=== PATIENT | male | born 1990 | race American Indian/Alaskan Native ===

== ENCOUNTER 2021-06-17 18:13 | Emergency (ER) | payer SELFPAY ==
--- NOTE | 2021-06-17 19:22 | XRay Report ---
CHEST PA AND LATERAL VIEWS INDICATION: Medical Clearance Psych. COMPARISON: None. FINDINGS: Support devices: None. Heart: Within normal limits. Lungs/Pleura: There are mild bibasilar opacities. Upper lungs are clear. No pleural abnormality. IMPRESSION: 1. Nonspecific mild bibasilar opacities. These could be atelectatic but follow-up is recommended. 2. There is gaseous distention of the colon under the left hemidiaphragm. Signer Name: Kodak Flanagan MD Signed: 06/17/2021 7:17 PM Workstation Name: [id number]
--- NOTE | 2021-06-17 19:31 | Emergency Department Report ---
HPI - General Chief Complaint: Dizziness Time Seen by Provider: 06/17/21 18:56 - HPI HPI: 31-year-old -[place] male presents to the emergency department with a complaint of having some dizziness/lightheadedness that started just prior to presentation. He denies any fever, vision change, slurred speech, numbness or paresthesias, headache, chest pain, shortness of breath. Patient denies any past medical history. He has not taken anything for his symptoms prior to presentation. His dizziness/lightheadedness worsens when he stands up. Patient also complains of "abnormalities in my body, my skin, and in my clothes." Patient says that he is seeing particular shapes in these areas. When asked how long this has been going on he says "a while." He denies any history of any psychiatric illness. Patient denies any hallucinations, suicidal or homicidal ideations. ED Past Medical Hx - Past Medical History Previous Medical History?: No - Surgical History Past Surgical History?: No - Social History Smoking Status: Never Smoker Substance Use Type: None - Medications Home Medications: Home Medications Medication Instructions Recorded Confirmed Last Taken Type Ibuprofen [Motrin] 800 mg PO Q8H #30 tablet 06/26/14 Unknown Rx methOCARBAMOL [Robaxin] 500 mg PO TID #30 tablet 06/26/14 Unknown Rx Acetaminophen/Codeine [Tylenol #3] 1 tab PO Q6H PRN #15 tab 05/23/15 Unknown Rx Cyclobenzaprine [Flexeril 10 MG 10 mg PO TID PRN #15 tablet 05/23/15 Unknown Rx TAB] Clindamycin [Clindamycin CAP] 300 mg PO Q6H #42 capsule 07/03/16 Unknown Rx Ibuprofen [Motrin 800 MG tab] 800 mg PO Q8HR PRN #30 tablet 07/03/16 Unknown Rx traMADoL [Ultram 50 MG tab] 50 mg PO Q6HR PRN #20 tablet 07/03/16 Unknown Rx Azithromycin [Zithromax Z-ARTEM] 250 mg PO DAILY #6 tab 06/17/21 Unknown Rx ED Review of Systems ROS: Stated complaint: DIZZINESS Other details as noted in HPI Comment: All other systems reviewed and negative Constitutional: denies: chills, fever Eyes: denies: eye pain, vision change ENT: denies: ear pain, throat pain Respiratory: denies: cough, shortness of breath Cardiovascular: denies: chest pain, palpitations Gastrointestinal: denies: abdominal pain, vomiting Musculoskeletal: denies: back pain, arthralgia Neurological: other (dizziness/lightheaded). denies: headache Physical Exam - Physical Exam Vital Signs: Vital Signs 06/17/21 18:23 Temperature 98.7 F Pulse Rate 98 H Respiratory 16 Rate Blood Pressure 140/100 [Left] O2 Sat by Pulse 97 Oximetry Physical Exam: GENERAL: The patient is well-developed well-nourished. HENT: Normocephalic. Atraumatic. Patient has moist mucous membranes. EYES: Extraocular motions are intact. NECK: Supple. Trachea is midline. CHEST/LUNGS: Clear to auscultation. There is no respiratory distress noted. HEART/CARDIOVASCULAR: Regular. There is no tachycardia. There is no murmur. ABDOMEN: Abdomen is soft, nontender. Patient has normal bowel sounds. SKIN: Skin is warm and dry. Patient has some mild folliculitis barbae. NEURO: The patient is awake, alert, and oriented. The patient is cooperative. Normal speech. MUSCULOSKELETAL: There is no tenderness or deformity. There is no limitation range of motion. ED Course Vital Signs 06/17/21 18:23 Temperature 98.7 F Pulse Rate 98 H Respiratory 16 Rate Blood Pressure 140/100 [Left] O2 Sat by Pulse 97 Oximetry ED Medical Decision Making - Lab Data Result diagrams: 06/17/21 19:27 06/17/21 19:27 Lab Results 06/17/21 06/17/21 06/17/21 Range/Units 19:27 19:27 19:27 WBC 6.7 (4.5-11.0) K/mm3 RBC 4.62 (3.65-5.03) M/mm3 Hgb 14.3 (11.8-15.2) gm/dl Hct 40.4 (35.5-45.6) % MCV 87 (84-94) fl MCH 31 (28-32) pg MCHC 36 H (32-34) % RDW 13.8 (13.2-15.2) % Plt Count 285 (140-440) K/mm3 Lymph % (Auto) 16.9 (13.4-35.0) % Bowman % (Auto) 7.0 (0.0-7.3) % Eos % (Auto) 0.7 (0.0-4.3) % Baso % (Auto) 0.5 (0.0-1.8) % Lymph # (Auto) 1.1 L (1.2-5.4) K/mm3 Bowman # (Auto) 0.5 (0.0-0.8) K/mm3 Eos # (Auto) 0.0 (0.0-0.4) K/mm3 Baso # (Auto) 0.0 (0.0-0.1) K/mm3 Seg Neutrophils % 74.9 H (40.0-70.0) % Seg Neutrophils # 5.0 (1.8-7.7) K/mm3 Sodium 135 L (137-145) mmol/L Potassium 3.8 (3.6-5.0) mmol/L Chloride 97.8 L (98-107) mmol/L Carbon Dioxide 23 (22-30) mmol/L Anion Gap 18 mmol/L BUN 12 (9-20) mg/dL Creatinine 0.8 (0.8-1.3) mg/dL Estimated GFR > 60 ml/min BUN/Creatinine Ratio 15 % Glucose 116 H (75-100) mg/dL Calcium 9.7 (8.4-10.2) mg/dL TSH 1.020 (0.270-4.200) mlU/mL Salicylates (2.8-20.0) mg/dL Acetaminophen (10.0-30.0) ug/mL Plasma/Serum Alcohol (0-0.07) % 06/17/21 06/17/21 06/17/21 Range/Units 19:27 19:27 19:27 WBC (4.5-11.0) K/mm3 RBC (3.65-5.03) M/mm3 Hgb (11.8-15.2) gm/dl Hct (35.5-45.6) % MCV (84-94) fl MCH (28-32) pg MCHC (32-34) % RDW (13.2-15.2) % Plt Count (140-440) K/mm3 Lymph % (Auto) (13.4-35.0) % Bowman % (Auto) (0.0-7.3) % Eos % (Auto) (0.0-4.3) % Baso % (Auto) (0.0-1.8) % Lymph # (Auto) (1.2-5.4) K/mm3 Bowman # (Auto) (0.0-0.8) K/mm3 Eos # (Auto) (0.0-0.4) K/mm3 Baso # (Auto) (0.0-0.1) K/mm3 Seg Neutrophils % (40.0-70.0) % Seg Neutrophils # (1.8-7.7) K/mm3 Sodium (137-145) mmol/L Potassium (3.6-5.0) mmol/L Chloride (98-107) mmol/L Carbon Dioxide (22-30) mmol/L Anion Gap mmol/L BUN (9-20) mg/dL Creatinine (0.8-1.3) mg/dL Estimated GFR ml/min BUN/Creatinine Ratio % Glucose (75-100) mg/dL Calcium (8.4-10.2) mg/dL TSH (0.270-4.200) mlU/mL Salicylates < 0.3 L (2.8-20.0) mg/dL Acetaminophen 5.0 L (10.0-30.0) ug/mL Plasma/Serum Alcohol < 0.01 (0-0.07) % - EKG Data -: EKG Interpreted by Nv EKG shows normal: sinus rhythm, axis, intervals, QRS complexes, ST-T waves Rate: tachycardia (107 bpm) - EKG Data When compared to previous EKG there are: previous EKG unavailable Interpretation: normal EKG (with mild tachycardia) - Radiology Data Radiology results: image reviewed interpreted by me: Chest x-ray does not show any acute process. There are no pleural effusions, obvious pneumonia and there is no pneumothorax. No widened mediastinum. - Medical Decision Making This patient presented to the emergency department complaining of some lightheadedness/dizziness, shortness of breath, and he appears to be fixated on something being wrong with his skin. The patient also says that he sees shapes when he looks at his skin and is closed. As for the medical evaluation, the patient does not appear to have any focal, motor or sensory deficits and his cranial nerves are intact. Heart and lung sounds are normal to auscultation and the patient does not appear in any respiratory or acute distress. Chest x-ray does not show any pneumonia, pleural effusions, pneumothorax, widened mediastinum, or any other acute process. EKG does not have any morphology concern with ST elevation myocardial infarction. Patient's labs have been unremarkable including CBC, metabolic panel, salicylate , acetaminophen, and normal thyroid function. Vital signs of been reassuring throughout his ED course including being afebrile. Chest x-ray is read by radiology as there being some mild bibasilar opacities that could be atelectasis versus. The patient will be treated with a Z-Artem. However there has been no fever or hypoxia and he does not appear to require a medical admission. The patient does appear to have some underlying psychiatric disorder. He seems to be fixated on his skin and "abnormalities" with his body and with his close. However, the patient denies any auditory or visual hallucinations. He denies any suicidal or homicidal ideations. He does not appear to be a danger to h imself or others. He is awake, oriented, AAO x3. Therefore, the patient does not appear to need to be made a 1013 or require inpatient stabilization. The patient declines a voluntary psychiatric assessment. He will be discharged home to follow-up with primary care and has been instructed to return to the emergency department with any worsening of symptoms or with any acute distress. Critical Care Time: No Critical care attestation.: If time is entered above; I have spent that time in minutes in the direct care of this critically ill patient, excluding procedure time. ED Disposition Clinical Impression: Dizziness Pneumonia Qualifiers: Pneumonia type: due to unspecified organism Laterality: unspecified laterality Lung location: unspecified part of lung Qualified Code(s): J18.9 - Pneumonia, unspecified organism Disposition: HOME / SELF CARE / HOMELESS Is pt being admited?: No Condition: Stable Instructions: Dizziness, Community-Acquired Pneumonia, Adult, Bacterial Pneumonia (ED) Additional Instructions: Please follow-up with a primary care physician in the next few days. I have given you a referral for a local primary care physician, Dr. Castillo, and a primary care clinic, [facility]. Please avoid any alcohol or illicit drugs. Please avoid any excessive caffeine use. Try to get 8 hours of uninterrupted sleep at night. Return to the emergency department with any worsening of your symptoms, new or concerning symptoms not addressed during this current emergency department visit, or with any acute distress. Prescriptions: Azithromycin [Zithromax Z-ARTEM] 250 mg PO DAILY #6 tab Referrals: LOU CASTILLO MD [Staff Physician] - 3-5 Days [facility] [Provider Group] - 3-5 Days Time of Disposition: 20:42
[2021-06-17 20:01] LABS: Basophils % (Auto) 0.5 % (0.0-1.8); Eosinophils % (Auto) 0.7 % (0.0-4.3); Hematocrit 40.4 % (35.5-45.6); Hemoglobin 14.3 gm/dl (11.8-15.2); Lymphocytes # (Auto) 1.1 K/mm3 (1.2-5.4); Lymphocytes % (Auto) 16.9 % (13.4-35.0); Mean Corpuscular HGB Conc 36 % (32-34); Mean Corpuscular Volume 87 fl (84-94); Monocytes # (Auto) 0.5 K/mm3 (0.0-0.8); Platelet Count 285 K/mm3 (140-440); Red Blood Count 4.62 M/mm3 (3.65-5.03); Red Cell Distribution Width 13.8 % (13.2-15.2)
[2021-06-17 20:14] LABS: BUN/Creatinine Ratio 15; Blood Urea Nitrogen 12 mg/dL (9-20); Calcium 9.7 mg/dL (8.4-10.2); Hemolysis Index 1
[2021-06-17 20:44] VITALS: BP 141/87
[2021-06-17] MEDS ORDERED: cloNIDine 0.2 MG TAB ONE (21:19)
--- NOTE | 2021-06-18 11:01 | Electrocardiograph Report ---
[facility] Test Date: 2021-06-17 Test Time: 20:00:05 Pat Name: DUNG MERCADO Department: Room: Gender: M Director [employer]: [id number] : 1990 Requested By: ELOY TIJERINA Order Number: [id number] Reading MD: Calixto Márquez Measurements Intervals [place] Rate: 107 P: 82 MA: 125 QRS: 62 QRSD: 83 T: 58 QT: 315 QTc: 421 Interpretive Statements Sinus tachycardia Biatrial enlargement No previous ECG available for comparison Electronically Signed On 06-18-2021 11:01:01 EDT by Calixto Márquez
== END 2021-06-17 20:50 | disposition home or self-care (01) ==
LOC: ED 18:13
DX: J18.9 Pneumonia, unspecified organism (principal); R42 Dizziness and giddiness; Z91.040 Latex allergy status; Z79.899 Other long term (current) drug therapy
CPT/HCPCS: 36415; 71046; 80048; 80320; 84443; 85025; 93005; 99284; G0480